=== PATIENT | female | born 1990 | race Caucasian/White ===

== ENCOUNTER 2022-11-15 11:39 | Emergency (ER) | payer BC, SELFPAY ==
[2022-11-15] VITALS (26 sets, daily range): BP systolic 121–137; BP diastolic 66–92; PULSE 64–83; RESP 10–29; TEMP 36.4; O2SAT 85–100
--- NOTE | 2022-11-15 12:01 | DI.US_ITS ---
Exam(s) US OB F/U FACIAL/LVOT/RVOT US PELVIS LIMITED EXAM: US PELVIS LIMITED CLINICAL HISTORY: 21 weeks , pelvic cramping; eval ovaries TECHNIQUE: Transabdominal and transvaginal imaging was performed using standard protocol. COMPARISON: US US OB F/U FACIAL/LVOT/RVOT from 11/15/2022 FINDINGS: UTERUS: Gravid. Fetus not evaluated. The amount of amniotic fluid appears visually normal. The placenta is anterior. There is no evidence of placenta previa or placental abruption. No subcho rionic collection. Cervix: Unremarkable. OVARIES: Right: Cyst or mass: None. Left: Obscured by bowel gas. DOPPLER: Color: Blood flow demonstrated to the right ovary. CUL-DE-SAC: Free fluid: None. IMPRESSION: Unremarkable right ovary. Left ovary was not visualized. Placenta is anterior and appears intact. DATA REPOSITORY:
--- NOTE | 2022-11-15 12:06 | W.ED.GENAD ---
Discharge Plan Disposition Patient Disposition: Home Condition: Stable Discharge Details Clinical Impression: Nausea and vomiting in Primary Care Provider: None,None ED Provider: Serjio Fan Home Meds and New Rx's Prescriptions: New ondansetron 4 mg tablet,disintegrating 4 mg PO Q8H PRN (Reason: nausea and vomiting) Qty: 30 0RF Discharge Instructions Instructions: Acute Nausea and Vomiting (ED) Additional Instructions: follow up with your obgyn within 1 week return to the emergency department if you have severe worsening pain, fevers, or new symptoms such as chest pain or difficulty breathing Medical Decision Making 31 yo g1 at approximately 21 weeks gestation who sees obgyn at [facility] and is in this area visiting, comes in with n/v and lower abdominal cramping after having a bowel movement this morning. States her thus far has been uncomplicated and no issues. She states she felt well yesterday. No fevers, no chills, denies vaginal bleeding. She arrives stable and localizes the cramping to the lower abdomen and pelvis. She has a soft abdomen with mild tenderness in the suprapubic and left lower abdomen, no guarding or rebound and no tenderness elsewhere. Suspect this could be vomiting from her or food illness, given lack of right loewr abdomen tenderness and no guarding doubt surgical pathology such as appendicitis. FHR 150. Will obtain cbc, cmp, lipase, treat with metoclopramide and fluids and obtain u/s to evaluate for possible ovaran cyst and less likely torsion labs unremarkable, mild leukocytosis which could be reactive, nausea improved, u/s unremarkable though were unable to visualize the left ovary, ua pending, no tenderness on exam now ua unremarkable, still no significant tenderness on exam so do not feel further imaging or testing indicated. Differential Diagnosis Differential Diagnosis: induced vomiting, food illness ovarian cyst Imaging Data Radiologic Study: Attestation: I personally reviewed and interpreted this imaging study as follows: Imaging: Ultrasound Radiologist's impression: IMPRESSION: Unremarkable right ovary.? Left ovary was not visualized.? Placenta is anterior and appears intact.? Lab Data Lab results reviewed: Yes I reviewed the patient's lab results. HPI General Mode of arrival: ambulatory. Date/Time Provider Initiated Documentation: 11/15/22 11:42. Limitations to Documentation: no limitations. Information obtained by: patient. History of Present Illness 31 year old F presents to the emergency department with the chief complaint of n/v, described as moderate, Patient started experiencing this hour(s) (4) and it has been constant. No relieving factors improve symptom(s), No exacerbating factors reported . Patient notes denies chest pain, fever/chills and shortness of breath. Patient did receive the following treatments prior to arrival, none Related Data Home Medications Medication Instructions Recorded Confirmed ondansetron 4 mg disintegrating 4 mg PO Q8H PRN nausea and 11/15/22 tablet vomiting #30 tabs Previous Rx's Medication Instructions Recorded ondansetron 4 mg disintegrating 4 mg PO Q8H PRN nausea and 11/15/22 tablet vomiting #30 tabs General Stated Complaint: Abd Prob KATYA: 3 Review of Systems All systems reviewed & are unremarkable except as noted in HPI and below Constitutional Constitutional: Denies chills, Denies fever(s) and Denies weakness Cardiovascular Cardiovascular: Denies chest pain and Denies dyspnea Respiratory Respiratory: Denies cough and Denies dyspnea Gastrointestinal Gastrointestinal: Reports abdominal pain, Reports nausea and Reports vomiting Integumentary/Breasts Skin/Breast: Denies rash Neurologic Neurologic: Denies weakness Endocrine Endocrine: Denies cold intolerance and Denies heat intolerance PFSH All Active Problems (Updated 11/15/22 @ 15:15 by Serjio Fan MD) Nausea and vomiting in (Acute) Social History Smoking risk assessment performed?: No Do you feel safe at home: Yes Do you feel safe in your relationship?: Yes Exam Const General: no acute distress Orientation: alert HENMT Head: normal to inspection Ears: external ears normal General nose exam: external nose normal Mouth: moist mucous membranes Eyes General: appearance normal, both eyes and all related structures Neck Neck: normal visual inspection Resp Effort & Inspection: normal respiratory effort and able to speak in complete sentences Cardio Rate: regular rate GI Palpation: soft, not firm and no guarding Skin General skin exam: no rashes or lesions noted Neuro General: patient alert and patient oriented x3 Extrem General: normal to inspection Psych Mental Status: mental status grossly normal Course Vital Signs Vital signs: Vital Signs Temperature 36.4 C L 11/15/22 11:48 Pulse 69 11/15/22 11:48 Respiratory Rate 20 11/15/22 11:48 Blood Pressure 129/72 11/15/22 11:48 Pulse Oximetry 100 11/15/22 11:48 Temperature 36.4 C L 11/15/22 11:48 Pulse 69 11/15/22 11:48 Respiratory Rate 20 11/15/22 11:48 Respiratory Effort Normal, Non-Labored 11/15/22 11:53 Blood Pressure 129/72 11/15/22 11:48 Blood Pressure Position Sitting 11/15/22 11:48 Pulse Oximetry 100 11/15/22 11:48 Oxygen Delivery Method Room Air 11/15/22 11:48 Oxygen Flow Rate 0 11/15/22 11:48 Pain Level 9 11/15/22 11:52
[2022-11-15 12:19] LABS: Abs Immature Grans 0.08 10^3/uL (0.0-0.06); Absolute Basophil Count 0.04 10^3/uL (0.0-0.2); Absolute Eosinophil Count 0.08 10^3/uL (0.0-0.7); Absolute Lymphocyte Count 1.23 10^3/uL (1.2-3.4); Absolute Monocyte Count 0.37 10^3/uL (0.1-0.8); Basophils % 0.3; Eosinophils % 0.6; HGB 13.5 g/dL (11.2-15.7); Immature Grans % 0.6; Lymphocytes % 8.7; MCH 30.8 pg (27.0-33.0); MCHC 34.6 % (32.0-36.0); MCV 89 fL (80-95); MPV 9.2 fL (8.0-11.0); Monocytes % 2.6; Neutrophils % 87.2; Platelet Count 265 10^3/uL (130-400); RBC 4.38 10^6/uL (3.93-5.22); RDW 13.2 % (11.7-14.6); RDW-SD 43.4 fL
[2022-11-15 12:34] LABS: ALT 34 U/L (14-59); AST 25 U/L (15-37); Albumin 3.4 g/dL (3.4-5.0); Alkaline Phosphatase 61 U/L (46-116); Anion Gap 8.3 mmol/L (3-11); BUN 9 mg/dL (7-18); Bilirubin, Total 0.3 mg/dL (0.2-1.0); CO2 26.7 mmol/L (21.0-32.0); CREATININE 0.6 mg/dL (0.55-1.02); Calcium 8.5 mg/dL (8.5-10.1); Chloride 102 mmol/L (98-107); Estimated GFR 121.47 (mL/min/1.73m2); Glucose 102 mg/dL (74-106); Lipase 38 U/L (16-77); Magnesium 1.8 mg/dL (1.8-2.4); Potassium 3.8 mmol/L (3.5-5.1); Sodium 137 mmol/L (136-145); Total Protein 7.6 g/dL (6.4-8.2)
[2022-11-15] MEDS: Metoclopramide 10 MG/2 ML VIAL IVP (12:41)
[2022-11-15] MEDS: Normal Saline 1,000 ML 1000 ML IV (12:42)
[2022-11-15] MEDS: ACETAMINOPHEN 1,000 MG/100 ML BTL 400 MG IVPB (14:01)
[2022-11-15 15:05] LABS: Bilirubin Negative (Negative); Blood Negative (Negative); Clarity Clear (Clear); Glucose Negative (Negative); Ketones >=160 mg/dL (Negative); Leukocyte Esterase Negative (Negative); Nitrite Negative (Negative); Specific Gravity 1.025 (1.005-1.025); Urobilinogen 0.2 mg/dL (Up to 0.2)
[2022-11-15] MEDS: Ondansetron 4 MG/2 ML VIAL (15:20)
== END 2022-11-15 15:25 | disposition home or self-care (01) ==
PROVIDERS: Emergency Provider Emergency Medicine
DX: R10.30 Lower abdominal pain, unspecified (principal); O21.8 Other vomiting complicating pregnancy; Z3A.21 21 weeks gestation of pregnancy; O26.892 Other specified pregnancy related conditions, second trimester
CPT/HCPCS: 76815; 76857; 80053; 83690; 96361; 96365; 96375; 99284; 81003; 83735; 85025; J0131; J2405; J2765